=== PATIENT | female | born 1980 | race Caucasian/White ===

== ENCOUNTER 2016-08-19 14:30 | Emergency (ER) | payer MEDICAID ==
[2016-08-19 14:42] VITALS: BP 109/77
--- NOTE | 2016-08-19 14:54 | EDM.PDOC ---
ED HPI Trauma - General Chief Complaint: Lower Extremity Injury/Pain Stated Complaint: LEFT KNEE INJURY Time Seen by Provider: 08/19/16 14:54 Source: Reports: Patient History Limitations: Reports: No limitations - History of Present Illness INITIAL COMMENTS - FREE TEXT/NARRATIVE: Patient presents for evaluation and treatment of injury to the left knee. Patient reports that last night she was helping a friend move when she planted her foot and was pushing something. she slipped on ice causing her left knee to twist. She states that she heard a pop. She reports swelling to the left knee. She has not noticed any bruising. She denies any numbness or tingling distally. she says that it hurts to walk on it but she has been bearing weight. She has been using a heat pack and elevate the leg. She has not taken any pain medications for the knee, reports she no longer has any pain medication. She's attempted to elevated as much as possible. Patient was seen in our ER on 08-11-2016 for the same complaint. She states she reinjured the knee. She did not follow up with ortho after her ER visit. X-ray of the left knee was obtained at that time and showed no acute fractures Occurred When: yesterday Severity: moderate Pain/Injury Location: Reports: lower extremity, left Consciousness: Reports: no loss of consciousness, remembers incident Allergies/ADRs: Allergies No Known Allergies Allergy (Verified 08/19/16 14:38) Home Medications: Ambulatory Orders Vilazodone Hydrochloride [Viibryd] 1 tab PO DAILY 08/11/16 [Confirmed 08/19/16] cloNIDine HCl [Catapres] 1 tab PO DAILY 08/11/16 [Confirmed 08/19/16] Acetaminophen/HYDROcodone [[place]art 325-5 MG] 1 tab PO Q6H #12 tablet 08/19/16 Past Medical History Respiratory History: Reports: Asthma Genitourinary History: Reports: Renal calculus Psychiatric History: Reports: Addiction, Anxiety, Depression, PTSD - Past Surgical History Female Surgical History: Reports: Lithotripsy/ESWL Social & Family History - Tobacco Use Smoking Status *Q: Current Every Day Smoker Years of Tobacco use: 18 Packs/Tins Daily: 1 - Caffeine Use Caffeine Use: Reports: Energy drinks - Recreational Drug Use Recreational Drug Use: No Drug Use in Last 12 Months: No Recreational Drug Type: Reports: Marijuana/Hashish, Methamphetamine Recreational Drug Use Frequency: Not Used In Over 3 Months Review of Systems - Review of Systems Review Of Systems: See Below Musculoskeletal: Reports: joint swelling (left knee), other (left knee pain) Skin: Denies: bruising, wound Neurological: Reports: difficulty walking (due to pain). Denies: numbness, syncope, tingling Trauma Exam - Physical Exam Exam: See Below Exam Limited By: No limitations General Appearance: Reports: alert, WD/WN, no apparent distress Eyes: bilateral eye: PERRL Respiratory Exam: Reports: no respiratory distress Cardiovascular: Reports: normal peripheral pulses, regular rate, rhythm Extremities: Reports: joint effusion (left lateral superior knee), pain with movement (pain with flexion; able to flex to about 90 degrees), tenderness ( left lateral knee), other (negative anterior drawer, negative posterior drawer, negative bridgette's test, minimal pain with valgus and varus stress testing, positive apley grind test) Neurologic: Reports: normal mood/affect Skin: Reports: Normal color, Warm/dry. Denies: Ecchymosis - Caitlin Coma Score Best Eye Response (Caitlin): (4) open spontaneously Best Verbal Response ([place]): (5) oriented Best Motor Response (Caitlin): (6) obeys commands Course - Vital Signs Last Recorded V/S: Last Vital Signs Temp 36.7 C 08/19/16 14:39 Pulse 75 08/19/16 16:31 Resp 16 08/19/16 16:31 BP 109/77 08/19/16 14:39 Pulse Ox 99 08/19/16 16:31 - Orders/Labs/Meds Orders: Active Orders 24 hr Category Date Time Status Knee Min 4V Lt [CR] Stat Exams 08/19/16 15:04 Taken - Radiology Interpretation Free Text/Narrative:: Xray of the left knee shows no acute fractures or dislocations. No change from left knee xray. - Re-Assessments/Exams Free Text/Narrative Re-Assessment/Exam: 08/19/16 15:52 Reviewed xrays with the patient. Possibly has a meniscal tear. Will get crutches and a knee immobilizer. Follow-up with ortho. Discharge instructions as documented. Departure - Departure Time of Disposition: 15:56 Disposition: Home, Self-Care 01 Condition: fair Clinical Impression: Fall Qualifiers: Encounter type: initial encounter Qualified Code(s): W19.XXXA - Unspecified fall, initial encounter Contusion of left knee Qualifiers: Encounter type: initial encounter Qualified Code(s): S80.02XA - Contusion of left knee, initial encounter Prescriptions: Acetaminophen/HYDROcodone [[place]art 325-5 MG] 1 tab PO Q6H #12 tablet Instructions: Fall Prevention in the Home, [id number], Contusion, Easy-to- Read Referrals: PCP,None [Primary Care Provider] - Brent Johnson MD [Physician] - Forms: ED Department Discharge Additional Instructions: Use crutches and knee immobilizer. OTC ibuprofen as needed for pain. [place]art 1 tab every 6 hours prn sever pain. Do not drive or operate machinery within 12 hours of taking the norco. Take as few of the norco as needed to control your pain as norco can be habit forming. Ice the knee 3 or 4 times a day for 10-15 minutes. Elevated the leg as much as possible. Follow-up with ortho in [address] Johnson. Call [phone] to schedule with him. Please return to the ER should your symptoms change or worsen. - My Orders Last 24 Hours: My Active Orders 08/19/16 15:04 Knee Min 4V Lt [CR] Stat - Assessment/Plan Last 24 Hours: My Active Orders 08/19/16 15:04 Knee Min 4V Lt [CR] Stat
--- NOTE | 2016-08-21 09:32 | CR ---
Left knee: Four views of the left knee were obtained. Comparison: Previous knee study of 08/11/16. Fracture again noted within the proximal fibular shaft. Callus appears to be present. Findings are stable from previous exam. Medial and lateral joint spaces are maintained in height. Joint effusion is seen with no change from previous study. No acute fracture or other abnormality is seen. Impression: 1. Fracture containing callus within the proximal fibular shaft which appears stable. 2. Stable joint effusion. 3. Nothing acute is definitely appreciated. Diagnostic code #2
== END 2016-08-19 16:20 | disposition home or self-care (01) ==
LOC: JD.ED 14:30
DX: S80.02XA Contusion of left knee, initial encounter (principal); F17.210 Nicotine dependence, cigarettes, uncomplicated; W00.0XXA Fall on same level due to ice and snow, initial encounter; Z79.899 Other long term (current) drug therapy; Z87.442 Personal history of urinary calculi
CPT/HCPCS: 73564-26-LT; 73564-LT; 99283; 99284

== ENCOUNTER 2016-10-07 11:18 | Emergency (ER) | payer MEDICAID ==
[2016-10-07 11:46] VITALS: BP 117/77
--- NOTE | 2016-10-07 12:05 | EDM.PDOC ---
ED HPI ENT - General Chief Complaint: ENT Problem Stated Complaint: TOOTH PAIN Time Seen by Provider: 10/07/16 11:42 Source of Information: Reports: Patient History Limitations: Reports: No limitations - History of Present Illness INITIAL COMMENTS - FREE TEXT/NARRATIVE: Patient is a 35-year-old female presents ED complaining of tooth pain. Patient states she has a history of methamphetamine use has been clean for the past year and 2 months. She's recently seen by a dentist and [facility] Approximately 2 weeks ago and had a feeling placed to the affected tooth. Mother states a filling fell out approximately 3 days ago she's developed increasing throbbing sensation discomfort to the affected tooth that is aggravated by cold air, food, and drinking. She's been utilizing ibuprofen intermittently 600 mg once a day and Tylenol 5oo mg once a day with some relief. Pain ranges from a 5-8 dependent on situation. There is no swelling, nausea/vomiting, fever or chills. Patient's next followup appointment with dentist is one week from this coming . Patient offers no additional complaints. Timing/Duration: Reports: Constant, Waxing/waning Severity: moderate Location: Reports: mouth Quality: Reports: Throbbing Improves with: Reports: Medication Worsens with: Reports: Other (See history of present illness.) Associated Symptoms: Reports: no other symptoms Treatments RFID DEVELOPER: Reports: Acetaminophen, NSAIDS - Related Data Allergies/ADRs: Allergies Allergy/AdvReac Type Severity Reaction Status Date / Time No Known Allergies Allergy Verified 08/19/16 14:38 Home Meds: Home Meds Vilazodone Hydrochloride [Viibryd] 1 tab PO DAILY 08/11/16 [History] cloNIDine HCl [Catapres] 1 tab PO DAILY 08/11/16 [History] Acetaminophen/HYDROcodone [[place] 325-5 MG] 1 tab PO Q6H #12 tablet 08/19/16 [Rx] Past Medical History Respiratory History: Reports: Asthma Genitourinary History: Reports: Renal calculus Psychiatric History: Reports: Addiction, Anxiety, Depression, PTSD - Past Surgical History Female Surgical History: Reports: Lithotripsy/ESWL Social & Family History - Tobacco Use Smoking Status *Q: Current Every Day Smoker Years of Tobacco use: 18 Packs/Tins Daily: 1 - Caffeine Use Caffeine Use: Reports: Energy drinks - Recreational Drug Use Recreational Drug Use: No Drug Use in Last 12 Months: No Recreational Drug Type: Reports: Marijuana/Hashish, Methamphetamine Recreational Drug Use Frequency: Not Used In Over 3 Months ED ROS ENT - Review of Systems Review Of Systems: See Below Constitutional: Reports: no symptoms HEENT: Reports: Other (Tooth pain) Musculoskeletal: Denies: neck pain ED EXAM, ENT - Physical Exam Exam: See Below Exam Limited By: No limitations General Appearance: alert, WD/WN, no apparent distress Ears: hearing grossly normal Nose: normal inspection Mouth/Throat: Normal inspection, Normal gums, Normal oropharynx, Dental pain (# 20). No: Dental abcess, Dental tenderness, Dental trauma, Dry mucous membrane Head: atraumatic, normocephalic Neck: normal inspection, supple, non-tender. No: lymphadenopathy (L), lymphadenopathy (R) Respiratory/Chest: no respiratory distress, lungs clear, normal breath sounds Cardiovascular: normal peripheral pulses, regular rate, rhythm Neurological: alert, oriented, CN II-XII intact, normal cognition Psychiatric: normal affect, normal mood Skin: Warm, Dry, Intact, Normal color Course - Vital Signs Last Recorded V/S: Last Vital Signs Temp 96.9 F 10/07/16 11:45 Pulse 83 10/07/16 11:45 Resp 20 10/07/16 11:45 BP 117/77 10/07/16 11:45 Pulse Ox 100 10/07/16 11:45 - Re-Assessments/Exams Free Text/Narrative Re-Assessment/Exam: Patient has some tenderness to the #20 tooth where prior filling was placed that recently filed. No signs of infection present. Definitive treatment is seen her dentist RADHA. Will discharge patient home with instructions as documented. Departure - Departure Time of Disposition: 12:05 Disposition: Home, Self-Care 01 Condition: good Clinical Impression: Pain due to dental caries Instructions: Dental Caries Referrals: PCP,None [Primary Care Provider] - Lachelle Weaver PA [Physician Engraver Block] - Forms: ED Department Discharge Additional Instructions: Please contact your dentist today to see if he can get in earlier to be evaluated and treated. Treatment is ibuprofen 600 mg every 6 hours and 650 mg of Tylenol every 6 hours in alternating fashion. Refrain from any hearing factors. Can utilize temporary filling that maybe available at local pharmacy. See your PCP for any other dental concerns if unable to get in with your dentist sooner.
== END 2016-10-07 12:20 | disposition home or self-care (01) ==
LOC: JD.ED 11:18
DX: K02.9 Dental caries, unspecified (principal); J45.909 Unspecified asthma, uncomplicated; F41.9 Anxiety disorder, unspecified; F32.9 Major depressive disorder, single episode, unspecified; F17.210 Nicotine dependence, cigarettes, uncomplicated; Z79.899 Other long term (current) drug therapy
CPT/HCPCS: 99283

== ENCOUNTER 2019-04-02 21:36 | Emergency (ER) | payer SELFPAY ==
[2019-04-02 22:05] VITALS: BP 108/82; PULSE 61
[2019-04-02] MEDS ORDERED: HYDROmorphone 1 MG/ML Syringe IVPUSH STA (22:09)
[2019-04-02] MEDS ORDERED: Sodium Chloride 0.9% 1,000 ML IV SCH (22:15)
[2019-04-02] MEDS ORDERED: Ondansetron 4 MG/2 ML SDV IVPUSH ONE (22:19)
--- NOTE | 2019-04-02 22:28 | EDM.PDOC ---
ED HPI GENERAL MEDICAL PROBLEM - General Chief Complaint: Flank Pain Stated Complaint: poss kidney stone Time Seen by Provider: 04/02/19 22:09 Source of Information: Reports: Patient, RN Notes Reviewed History Limitations: Reports: No Limitations - History of Present Illness INITIAL COMMENTS - FREE TEXT/NARRATIVE: Patient is a 38-year-old female who presents to the ED for evaluation of a possible kidney stone. The patient states that she developed sharp pain to her right flank area around 6:30 tonight, this radiates to the right side of her abdomen. Patient notes she has a history of kidney stones, with the affected side being on the right, she states that she has had to have lithotripsy done in the past. She states that the pain is very similar to kidney stone she has had in the past. She states she is having nausea, but no vomiting or known diarrhea, she does not complain of any fevers or chills at this time. She would rate her pain at a 6 out of 10. She did not take anything for pain medication at home. She further denies any sort of dysuria, urinary frequency or urgency. Right Flank Pain Score (Numeric/FACES): 6 - Related Data Allergies Allergy/AdvReac Type Severity Reaction Status Date / Time No Known Allergies Allergy Verified 04/02/19 22:06 Home Meds: Home Meds ALPRAZolam [Alprazolam] 1 mg PO TID PRN 04/02/19 [History] Escitalopram [Lexapro] 20 mg PO DAILY 04/02/19 [History] traZODone HCl [Trazodone HCl] 50 mg PO BEDTIME 04/02/19 [History] Past Medical History Respiratory History: Reports: Asthma Genitourinary History: Reports: Renal Calculus Musculoskeletal History: Reports: Other (See Below) Other Musculoskeletal History: restless legs Psychiatric History: Reports: Addiction, Anxiety, Depression, PTSD - Past Surgical History HEENT Surgical History: Reports: Other (See Below) Social & Family History - Tobacco Use Smoking Status *Q: Current Every Day Smoker Years of Tobacco use: 21 Packs/Tins Daily: 1 - Caffeine Use Caffeine Use: Reports: Coffee - Recreational Drug Use Recreational Drug Use: No ED ROS GENERAL - Review of Systems Review Of Systems: See Below Constitutional: Denies: Fever, Chills HEENT: Reports: No Symptoms Respiratory: Denies: Shortness of Breath Cardiovascular: Denies: Chest Pain Endocrine: Reports: No Symptoms GI/Abdominal: Reports: Nausea. Denies: Abdominal Pain, Constipation, Diarrhea, Vomiting : Reports: Flank Pain (Right sided). Denies: Dysuria, Frequency, Urgency Musculoskeletal: Reports: No Symptoms Skin: Reports: No Symptoms Neurological: Reports: No Symptoms Psychiatric: Reports: No Symptoms Hematologic/Lymphatic: Reports: No Symptoms ED EXAM, RENAL/ - Physical Exam Exam: See Below Exam Limited By: No Limitations General Appearance: Alert, WD/WN, No Apparent Distress Respiratory/Chest: No Respiratory Distress, Lungs Clear, Normal Breath Sounds, No Accessory Muscle Use, Chest Non-Tender Cardiovascular: Normal Peripheral Pulses, Regular Rate, Rhythm, No Murmur GI/Abdominal: Normal Bowel Sounds, Soft, Non-Tender, No Distention, No Mass Back Exam: Normal Inspection. No: CVA Tenderness (L), CVA Tenderness (R) Extremities: Normal Inspection, Normal Capillary Refill Neurological: Alert, Oriented, Normal Cognition, No Motor/Sensory Deficits Psychiatric: Normal Affect, Normal Mood Skin Exam: Warm, Dry, Intact, Normal Color, No Rash Course - Vital Signs Last Recorded V/S: Last Vital Signs Temp 97.2 F 04/02/19 22:01 Pulse 61 04/02/19 22:01 Resp 20 04/02/19 22:01 BP 108/82 04/02/19 22:01 Pulse Ox 100 04/02/19 22:01 - Orders/Labs/Meds Orders: Active Orders 24 hr Category Date Time Status Influenza Vaccine Charge [RC] .DISCHARGE Care 04/02/19 23:12 Active Strain Urine [RC] ASDIRECTED Care 04/02/19 22:10 Active Labs: Laboratory Tests 04/02/19 Range/Units 22:11 Urine Color Yellow (Yellow) Urine Appearance Clear (Clear) Urine pH 6.0 (5.0-8.0) Ur Specific [place] 1.025 (1.005-1.030) Urine Protein Negative (Negative) Urine Glucose (UA) Negative (Negative) Urine Ketones Negative (Negative) Urine Occult Blood Trace-intact H (Negative) Urine Nitrite Negative (Negative) Urine Bilirubin Negative (Negative) Urine Urobilinogen 0.2 (0.2-1.0) Ur Leukocyte Esterase Negative (Negative) Urine RBC 0-5 (0-5) /hpf Urine WBC 0-5 (0-5) /hpf Ur Squamous Epith Cells 0-5 (0-5) /hpf Urine Bacteria Few (FEW) /hpf Urine Mucus Rare (FEW) /hpf Meds: Medications Discontinued Medications Generic Name Dose Route Start Last Admin Trade Name Pablo PRN Reason Stop Dose Admin Hydromorphone HCl 1 mg 04/02/19 22:09 04/02/19 22:50 Dilaudid IVPUSH 04/02/19 22:10 1 mg ONETIME STA Administration Sodium Chloride 1,000 mls @ 150 mls/hr 04/02/19 22:15 04/02/19 22:49 Normal Saline IV 150 mls/hr ASDIRECTED MARILU Administration Influenza Virus Vaccine 60 mcg 04/02/19 23:15 04/02/19 23:38 Fluzone Quad Syringe IM 04/02/19 23:16 60 mcg .ONCE ONE Administration Influenza Virus Vaccine 60 mcg 04/03/19 10:00 Fluzone Quad Syringe IM 04/03/19 10:01 .ONCE ONE Ondansetron HCl 4 mg 04/02/19 22:19 04/02/19 22:49 Zofran IVPUSH 04/02/19 22:20 4 mg ONETIME ONE Administration - Re-Assessments/Exams Free Text/Narrative Re-Assessment/Exam: 04/02/19 22:27 Patient presents to the ED for evaluation of a possible kidney stone, I did order an IV be placed with some IV fluids, 4 mg Zofran, 1 mg Dilaudid, and abdomen and pelvis CT without contrast, and a UA for further evaluation. 04/02/19 23:34 CT is done and read per V-rad: scarring within right kidney, right renal cysts, small non-obstructing R renal calculi. No hydronephrosis. No ureteral or bladder calculi appreciated. No other acute processes were identified to explain the patients symptoms. Pt will be made aware that she does have some stones in the kidney, but none that are traveling in the ureter at this time. She will be discharged home with general recommendations. Departure - Departure Time of Disposition: 23:37 Disposition: Home, Self-Care 01 Condition: Fair Clinical Impression: Kidney calculi - Discharge Information *PRESCRIPTION DRUG MONITORING PROGRAM REVIEWED*: No *COPY OF PRESCRIPTION DRUG MONITORING REPORT IN PATIENT DONNELL: No Instructions: Kidney Stones, [id number], Dietary Guidelines to Help Prevent Kidney Stones Referrals: PCP,Not In Area [Primary Care Provider] - Forms: ED Department Discharge Additional Instructions: You have been evaluated in the ED for your right sided flank pain. Your urinalysis demonstrated a trace amount of blood, your CT demonstrated that you have stones within the right kidney, but none within the ureters. You were given some IV pain medications, nausea medications and IV Fluids. Recommend you increase your oral fluid intake. You have been given an educational handout regarding diet and kidney stones. You may take 600mg Ibuprofen Q6H PRN for further pain relief. Do not exceed 3200mg Ibuprofen in a 24H time span. If your symptoms do not resolve in a few days time, recommend that you follow up with your primary care physician for a re-evaluation. Please return to the ED if your symptoms change or worsen. - My Orders Last 24 Hours: My Active Orders 04/02/19 22:10 Strain Urine [RC] ASDIRECTED 04/02/19 23:12 Influenza Vaccine Charge [RC] .DISCHARGE - Assessment/Plan Last 24 Hours: My Active Orders 04/02/19 22:10 Strain Urine [RC] ASDIRECTED 04/02/19 23:12 Influenza Vaccine Charge [RC] .DISCHARGE
[2019-04-02] MEDS ORDERED: FLU Vacc QS2019-20(6MOS+)/PF 60 MCG/0.5 ML SYRINGE IM ONE (23:15)
--- NOTE | 2019-04-03 06:43 | CT ---
CT abdomen and pelvis Technique: Multiple axial sections were obtained from above the dome of the diaphragm inferiorly through the pubic symphysis. Intravenous contrast and oral contrast was not utilized. Comparison: Previous CT abdomen and pelvis study of 09/24/15. Findings: Cortical scarring is noted within the upper right kidney. Small cyst is noted within the lower right kidney measuring about 9 mm. Small nonobstructing stone is noted within the mid right kidney. Several other vague calcifications are seen which are believed to be parenchymal in location within the right kidney. Left kidney shows no abnormal calcifications. No ureteral dilatation or ureteral stone is seen. No bladder calculi are seen. Pancreas is within normal limits. Liver contains no focal parenchymal abnormality. Spleen appears within normal limits. Adrenal glands show no nodule. Gallbladder is collapsed without calcified gallstones. Aorta shows no aneurysm. No retroperitoneal adenopathy is seen. Small fat-containing umbilical hernia is noted. No pelvic mass or adenopathy is seen. Cyst is noted within the left ovary measuring 2.2 cm which is believed to be physiologic. Appendix is seen which is normal in size. Bone window settings were reviewed which appear within normal limits for the patient's age. Impression: 1. Scarring within the upper right kidney. Small cyst within the lower right kidney. Small nonobstructing calculus within the right kidney. 2. No ureteral dilatation or ureteral stone is seen. 3. Nothing acute is appreciated on noncontrast CT study of the abdomen and pelvis. Diagnostic code #2 I agree with preliminary report from [facility], finalized on 04/03/19, 12:26 AM Central Time
[2019-04-03] MEDS ORDERED: FLU Vacc QS2019-20(6MOS+)/PF 60 MCG/0.5 ML SYRINGE IM ONE (10:00)
== END 2019-04-02 23:55 | disposition home or self-care (01) ==
LOC: JD.ED 21:36
DX: N20.0 Calculus of kidney (principal); J45.909 Unspecified asthma, uncomplicated; F41.9 Anxiety disorder, unspecified; F32.9 Major depressive disorder, single episode, unspecified; F17.210 Nicotine dependence, cigarettes, uncomplicated; Z23 Encounter for immunization
CPT/HCPCS: 74176; 81001; 90471; 90686; 96361; 96374; 96375; 99284; J1170; J2405; J7040; G0008

== ENCOUNTER 2020-02-02 11:50 | Emergency (ER) | payer MEDICAID ==
[2020-02-02 12:07] VITALS: BP 138/84; PULSE 70
--- NOTE | 2020-02-02 12:17 | EDM.PDOC ---
ED HPI GENERAL MEDICAL PROBLEM - General Chief Complaint: Cardiovascular Problem Stated Complaint: POSS BLOOD CLOTS Time Seen by Provider: 02/02/20 12:16 - History of Present Illness INITIAL COMMENTS - FREE TEXT/NARRATIVE: 39-year-old female presents the emergency room with possible blood clots. The patient is developed some right-sided chest pain and some shortness of breath. The patient had a venous ultrasound done on Wednesday in [place]. This shows some clot, or deep venous thrombosis in the left mid and distal portion of the superficial femoral vein. The patient recently was treated for DVT and PE however is now off her Eliquis. The patient is a current smoker but is trying to quit she was supposed to stay on her Eliquis but insurance denied it according to the patient. 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) Other Treatments LIQUOR ESTABLISHMENT MANAGER: had been off eliquis for a month due to insurance Right Chest Pain Score (Numeric/FACES): 6 Left Upper Leg Pain Score (Numeric/FACES): 4 - Related Data Allergies Allergy/AdvReac Type Severity Reaction Status Date / Time No Known Allergies Allergy Verified 04/02/19 22:06 Home Meds: Home Meds Escitalopram [Lexapro] 20 mg PO DAILY 04/02/19 [History] Apixaban [Eliquis] 5 mg PO BID 02/02/20 [History] Prazosin HCl [Prazosin] 1 mg PO BEDTIME 02/02/20 [History] hydrOXYzine HCL [hydrOXYzine] 25 mg PO ASDIRECTED 02/02/20 [History] oxyCODONE 5 mg PO ASDIRECTED 02/02/20 [History] Past Medical History Respiratory History: Reports: Asthma Genitourinary History: Reports: Renal Calculus Musculoskeletal History: Reports: Other (See Below) Other Musculoskeletal History: restless legs Psychiatric History: Reports: Addiction, Anxiety, Depression, PTSD - Past Surgical History HEENT Surgical History: Reports: Other (See Below) Social & Family History - Caffeine Use Caffeine Use: Reports: Coffee ED ROS GENERAL - Review of Systems Review Of Systems: See Below Constitutional: Reports: No Symptoms HEENT: Reports: No Symptoms Respiratory: Reports: Shortness of Breath. Denies: Cough, Sputum, Hemoptysis Cardiovascular: Reports: Chest Pain (Right sided) Endocrine: Reports: No Symptoms GI/Abdominal: Reports: No Symptoms : Reports: No Symptoms Musculoskeletal: Reports: Other (Left leg pain) Skin: Reports: No Symptoms Neurological: Reports: No Symptoms ED EXAM, GENERAL - Physical Exam Exam: See Below Exam Limited By: No Limitations General Appearance: Alert, No Apparent Distress Head: Atraumatic, Normocephalic Neck: Normal Inspection, Supple, Non-Tender, Full Range of Motion. No: Lymphadenopathy (L), Lymphadenopathy (R) Respiratory/Chest: No Respiratory Distress, Lungs Clear, Normal Breath Sounds Cardiovascular: Normal Peripheral Pulses, Regular Rate, Rhythm, No Edema GI/Abdominal: Normal Bowel Sounds, Soft, Non-Tender (Female) Exam: Normal Speculum Exam Back Exam: Normal Inspection. No: CVA Tenderness (L), CVA Tenderness (R) Extremities: Normal Inspection, Other (Leg has its painful areas but is not grossly swollen or erythematous) Neurological: Alert, Oriented, Normal Cognition Course - Vital Signs Last Recorded V/S: Last Vital Signs Temp 36.3 C 02/02/20 12:05 Pulse 70 02/02/20 12:05 Resp 20 02/02/20 12:05 BP 138/84 02/02/20 12:05 Pulse Ox 97 02/02/20 12:05 - Orders/Labs/Meds Orders: Active Orders 24 hr Category Date Time Status EKG Documentation Completion [RC] STAT Care 02/02/20 12:25 Active Sodium Chloride 0.9% [Normal Saline] 100 ml Med 02/02/20 15:15 Active IV ASDIRECTED Sodium Chloride 0.9% [Saline Flush] Med 02/02/20 15:02 Active 10 ml FLUSH ONETIME PRN Medication Orders Sodium Chloride (Normal Saline) 100 mls @ 60 mls/hr IV ASDIRECTED MARILU Last Admin: 02/02/20 15:50 Dose: 60 mls/hr Documented by: DANA Sodium Chloride (Saline Flush) 10 ml FLUSH ONETIME PRN PRN Reason: Keep Vein Open Last Admin: 02/02/20 15:50 Dose: 10 ml Documented by: Admin: 02/02/20 15:19 Dose: 10 ml Documented by: KATYA Labs: Laboratory Tests 02/02/20 02/02/20 02/02/20 Range/Units 08:10 12:41 12:41 WBC 6.37 (3.98-10.04) K/mm3 RBC 4.40 (3.98-5.22) M/mm3 Hgb 14.2 (11.2-15.7) gm/dl Hct 42.8 (34.1-44.9) % MCV 97.3 H D (79.4-94.8) fl MCH 32.3 H (25.6-32.2) pg MCHC 33.2 (32.2-35.5) g/dl RDW Std Deviation 44.7 (36.4-46.3) fL Plt Count 183 (182-369) K/mm3 MPV 10.9 (9.4-12.3) fl Neut % (Auto) 67.9 (34.0-71.1) % Lymph % (Auto) 21.5 (19.3-51.7) % [place] % (Auto) 7.8 (4.7-12.5) % Eos % (Auto) 1.7 (0.7-5.8) Baso % (Auto) 0.6 (0.1-1.2) % Neut # (Auto) 4.32 (1.56-6.13) K/mm3 Lymph # (Auto) 1.37 (1.18-3.74) K/mm3 [place] # (Auto) 0.50 H (0.24-0.36) K/mm3 Eos # (Auto) 0.11 (0.04-0.36) K/mm3 Baso # (Auto) 0.04 (0.01-0.08) K/mm3 PT 10.1 (9.7-12.0) SECONDS INR 0.94 APTT 24 (22-31) SECONDS Sodium 141 (136-145) mEq/L Potassium 3.4 L (3.5-5.1) mEq/L Chloride 107 (98-107) mEq/L Carbon Dioxide 25 (21-32) mEq/L Anion Gap 12.4 (5-15) BUN 11 (7-18) mg/dL Creatinine 0.9 (0.55-1.02) mg/dL Est Cr Clr Drug Dosing 62.70 mL/min Estimated GFR (MDRD) > 60 (>60) mL/min BUN/Creatinine Ratio 12.2 L (14-18) Glucose 107 H (74-106) mg/dL Calcium 8.8 (8.5-10.1) mg/dL Total Bilirubin 0.2 (0.2-1.0) mg/dL AST 16 (15-37) U/L ALT 33 (14-59) U/L Alkaline Phosphatase 55 (46-116) U/L Total Protein 6.4 (6.4-8.2) g/dl Albumin 3.3 L (3.4-5.0) g/dl Globulin 3.1 gm/dL Albumin/Globulin Ratio 1.1 (1-2) Meds: Medications Generic Name Dose Route Start Last Admin Trade Name Freq PRN Reason Stop Dose Admin Sodium Chloride 100 mls @ 60 mls/hr 02/02/20 15:15 02/02/20 15:50 Normal Saline IV 60 mls/hr ASDIRECTED MARILU Administration Sodium Chloride 10 ml 02/02/20 15:02 02/02/20 15:50 Saline Flush FLUSH 10 ml ONETIME PRN Administration Keep Vein Open Discontinued Medications Generic Name Dose Route Start Last Admin Trade Name Freq PRN Reason Stop Dose Admin Iopamidol 100 ml 02/02/20 15:02 02/02/20 15:50 [id number] (76%) IVPUSH 02/02/20 15:03 100 ml ONETIME ONE Administration - Re-Assessments/Exams Free Text/Narrative Re-Assessment/Exam: 02/02/20 14:55 Reviewed we will proceed with a CTA. Patient denies any possibility of . 02/02/20 17:05 CTA of the chest does not show pulmonary embolism she has a suspected blood clot in her leg. She was able to hand picker her Eliquis from the post office today it is recommended that she start this 5 mg twice daily and follow-up with her regular healthcare provider early this next week. Departure - Departure Time of Disposition: 17:05 Disposition: Home, Self-Care 01 Clinical Impression: Chest pain, DVT (deep venous thrombosis) Clinical Impression: (Ruled Out): Lower leg DVT (deep venous thrombosis) Referrals: Ishmael Morton PA [Primary Care Provider] - Forms: ED Department Discharge Additional Instructions: Return to the emergency room with any questions problems or worsening symptoms. Start your Eliquis 5 mg twice daily. Follow-up with your regular healthcare provider early this next week for recheck Sepsis Event Note (ED) - Evaluation Sepsis Screening Result: No Definite Risk - Focused Exam Vital Signs: Vital Signs Temp Pulse Resp BP Pulse Ox 02/02/20 12:05 36.3 C 70 20 138/84 97 - My Orders Last 24 Hours: My Active Orders 02/02/20 12:25 EKG Documentation Completion [RC] STAT 02/02/20 15:02 Sodium Chloride 0.9% [Saline Flush] 10 ml FLUSH ONETIME PRN 02/02/20 15:15 Sodium Chloride 0.9% [Normal Saline] 100 ml IV ASDIRECTED - Assessment/Plan Last 24 Hours: My Active Orders 02/02/20 12:25 EKG Documentation Completion [RC] STAT 02/02/20 15:02 Sodium Chloride 0.9% [Saline Flush] 10 ml FLUSH ONETIME PRN 02/02/20 15:15 Sodium Chloride 0.9% [Normal Saline] 100 ml IV ASDIRECTED
[2020-02-02] MEDS ORDERED: Iopamidol 755 Mg/ML 100 ML Bottle IVPUSH ONE (15:02)
[2020-02-02] MEDS ORDERED: Sodium Chloride 0.9% 100 ML IV SCH (15:15)
[2020-02-02] MEDS: Sodium Chloride 0.9% 10 ML Syringe FLUSH PRN ×2 (15:19→15:50)
--- NOTE | 2020-02-02 16:06 | CT ---
CT chest Technique: Multiple axial sections through the chest were obtained. Intravenous contrast was utilized. Study has been performed as a pulmonary angiogram protocol. Findings: Pulmonary arteries are fairly well-opacified. No filling defects are seen to indicate pulmonary embolism. No pericardial thickening is seen. Visualized upper abdominal structures shows no discrete acute finding. Lungs are clear with no acute parenchymal change. No pleural effusions are seen. Bone window settings were reviewed. No acute osseous finding is seen. Impression: 1. No findings of pulmonary embolism. 2. Nothing acute is appreciated on CT study of the chest. Diagnostic code #1 Study was dictated in MDT
[2020-02-02] MEDS ORDERED: Potassium Chloride 20 MEQ Tab.ER PO ONE (17:07)
== END 2020-02-02 17:32 | disposition home or self-care (01) ==
LOC: JD.ED 11:50
DX: R07.9 Chest pain, unspecified (principal); I82.402 Acute embolism and thrombosis of unspecified deep veins of left lower extremity; J45.909 Unspecified asthma, uncomplicated; F41.9 Anxiety disorder, unspecified; F32.9 Major depressive disorder, single episode, unspecified; F17.200 Nicotine dependence, unspecified, uncomplicated; Z79.01 Long term (current) use of anticoagulants; Z79.899 Other long term (current) drug therapy; Z86.711 Personal history of pulmonary embolism; Z20.828 Contact with and (suspected) exposure to other viral communicable diseases
CPT/HCPCS: 36415; 71275; 80053; 85025; 85610; 85730; 87635; 93005; 99285; A9270; J7050; Q9967; 99284; U0002

== ENCOUNTER 2020-11-09 15:21 | Emergency (ER) | payer MEDICAID ==
[2020-11-09] MEDS ORDERED: Sodium Chloride 0.9% 10 ML SDV IV ONE (15:41)
[2020-11-09] MEDS ORDERED: Sodium Chloride 0.9% 1,000 ML IV ONE (15:41)
[2020-11-09] MEDS ORDERED: HYDROmorphone 1 MG/ML Syringe IVPUSH ONE (15:44)
[2020-11-09] MEDS ORDERED: Ondansetron 4 MG/2 ML SDV IVPUSH ONE (15:45)
[2020-11-09] MEDS: Sodium Chloride 0.9% 10 ML Syringe FLUSH PRN ×2 (15:52→16:28)
--- NOTE | 2020-11-09 15:52 | EDM.PDOC ---
ED HPI GENERAL MEDICAL PROBLEM - General Chief Complaint: Lower Extremity Injury/Pain Stated Complaint: L LEG PAIN Time Seen by Provider: 11/09/20 15:22 Source of Information: Reports: Patient, Old Records History Limitations: Reports: No Limitations - History of Present Illness INITIAL COMMENTS - FREE TEXT/NARRATIVE: Patient presents with increasing left lower extremity pain along with right upper shoulder and chest pain, sweats, nausea. Patient had a history of left knee meniscus surgery and postoperatively had a DVT she had been on Eliquis and after being on Eliquis for about 6 months she was seen and evaluated by her primary and thought that should be fine to stop the Eliquis. Patient does smoke a large amount of cigarettes every day. Last week she noted that she started having onset of left leg swelling again and she went to the urgent care they did a left lower extremity ultrasound that verified clot in the left lower extremity and she started back on Eliquis currently still on the 10 mg dose twice a day. She is concerned that there is just some increasing pain left lower extremity swelling some left lower abdominal pain associated with her right upper shoulder/chest pain. No lightheadedness or fainting spell no chest pain no pain with breathing no coughing. No sore throat runny nose nausea but no vomiting no diarrhea no burning pain or blood in the urine denies menstrual cycles have been normal. Patient's parents in a car accident otherwise no family history known. Left Lower Leg Pain Score (Numeric/FACES): 6 - Related Data Allergies Allergy/AdvReac Type Severity Reaction Status Date / Time No Known Allergies Allergy Verified 11/09/20 15:34 Home Meds: Home Meds Escitalopram [Lexapro] 20 mg PO DAILY 04/02/19 [History] Apixaban [Eliquis] 10 mg PO BID 02/02/20 [History] Prazosin HCl [Prazosin] 1 mg PO BEDTIME 02/02/20 [History] hydrOXYzine HCL [hydrOXYzine] 25 mg PO ASDIRECTED 02/02/20 [History] Acetaminophen/HYDROcodone [[place] 325-5 MG] 1 - 2 tab PO Q4H PRN #20 tablet 11/09/20 [Rx] Past Medical History Cardiovascular History: Reports: Blood Clots/VTE/DVT Respiratory History: Reports: Asthma Genitourinary History: Reports: Renal Calculus Musculoskeletal History: Reports: Other (See Below) Other Musculoskeletal History: restless legs Psychiatric History: Reports: Addiction, Anxiety, Depression, PTSD - Past Surgical History HEENT Surgical History: Reports: Other (See Below) Other HEENT Surgeries/Procedures: ENT Female Surgical History: Reports: Lithotripsy/ESWL Musculoskeletal Surgical History: Reports: Other (See Below) Other Musculoskeletal Surgeries/Procedures:: had knee scope done Social & Family History - Tobacco Use Tobacco Use Status *Q: Current Every Day Tobacco User Years of Tobacco use: 20 Packs/Tins Daily: 1 - Caffeine Use Caffeine Use: Reports: Coffee - Recreational Drug Use Recreational Drug Use: No Review of Systems - Review of Systems Review Of Systems: See Below Constitutional: Reports: Diaphoresis Eyes: Denies: Vision Change Ears: Denies: Dizziness Respiratory: Denies: Shortness of Breath, Wheezing, Pleuritic Chest Pain, Cough Cardiovascular: Reports: Chest Pain. Denies: Irregular Heart Rate, Lightheadedness GI/Abdominal: Reports: Abdominal Pain, Nausea. Denies: Diarrhea, Vomiting Genitourinary: Denies: Dysuria, Hematuria, Painful Urination Skin: Denies: Rash Neurological: Denies: Dizziness, Numbness, Syncope, Tingling Psychiatric: Reports: No Symptoms ED EXAM, GENERAL - Physical Exam Exam: See Below Exam Limited By: No Limitations General Appearance: Alert, WD/WN, Mild Distress Throat/Mouth: Other (Mucous membranes are dry) Head: Atraumatic Neck: Normal Inspection Respiratory/Chest: No Respiratory Distress, Lungs Clear, Normal Breath Sounds. No: Rales, Rhonchi Cardiovascular: Normal Peripheral Pulses, Regular Rate, Rhythm Peripheral Pulses: 1+: Dorsalis Pedis (L), Dorsalis Pedis (R), 2+: Radial (R) GI/Abdominal: Normal Bowel Sounds, Soft, Non-Tender Extremities: Normal Inspection, Other (Pain in left lower extremity in the calf mostly now today but also some in the proximal thigh and left lower pelvic/lower quadrant of the abdomen. Cap refill less than 2 seconds, dorsalis pedis and posterior tibial pulses are palpated.) Psychiatric: Normal Affect Skin Exam: Warm Course - Vital Signs Text/Narrative:: Patient with history of DVT in the past, currently on Eliquis however with symptoms concerning that she may have developed a recurrent pulmonary embolism but also want a look for increasing clot burden especially in the lower abdomen iliacs and therefore CT scan of chest abdomen pelvis angiogram performed. Patient otherwise appears dehydrated would give her some IV fluids, does not seem to be Covid or other acute pneumonia or respiratory illness no coughing no fall trauma or injury does not seem to be a strain or sprain. Last Recorded V/S: Last Vital Signs Temp 97.1 F 11/09/20 15:32 Pulse 80 11/09/20 15:32 Resp 16 11/09/20 15:32 BP 138/89 11/09/20 15:32 Pulse Ox 98 11/09/20 15:32 - Orders/Labs/Meds Orders: Active Orders 24 hr Category Date Time Status Peripheral IV Care [RC] . DIRECTED Care 11/09/20 15:40 Active Abdomen Pelvis w Cont [CT] Stat Exams 11/09/20 15:43 Taken Chest PE [Ang Chest] [CT] Stat Exams 11/09/20 15:42 Taken Sodium Chloride 0.9% [Saline Flush] Med 11/09/20 15:40 Active 10 ml FLUSH ASDIRECTED PRN Peripheral IV Insertion Adult [OM.PC] Stat Oth 11/09/20 15:40 Ordered Medication Orders Sodium Chloride (Sodium Chloride 0.9% 10 Ml Syringe) 10 ml FLUSH ASDIRECTED PRN PRN Reason: Keep Vein Open Last Admin: 11/09/20 16:28 Dose: 10 ml Documented by: Admin: 11/09/20 15:52 Dose: 10 ml Documented by: NATALIE Labs: Laboratory Tests 11/09/20 11/09/20 Range/Units 15:54 15:54 WBC 7.31 (3.98-10.04) K/mm3 RBC 4.52 (3.98-5.22) M/mm3 Hgb 14.9 (11.2-15.7) gm/dl Hct 44.0 (34.1-44.9) % MCV 97.3 H (79.4-94.8) fl MCH 33.0 H (25.6-32.2) pg MCHC 33.9 (32.2-35.5) g/dl RDW Std Deviation 42.7 (36.4-46.3) fL Plt Count 238 (182-369) K/mm3 MPV 9.9 (9.4-12.3) fl Neut % (Auto) 70.7 (34.0-71.1) % Lymph % (Auto) 19.8 (19.3-51.7) % [place] % (Auto) 7.7 (4.7-12.5) % Eos % (Auto) 1.1 (0.7-5.8) Baso % (Auto) 0.4 (0.1-1.2) % Neut # (Auto) 5.17 (1.56-6.13) K/mm3 Lymph # (Auto) 1.45 (1.18-3.74) K/mm3 [place] # (Auto) 0.56 H (0.24-0.36) K/mm3 Eos # (Auto) 0.08 (0.04-0.36) K/mm3 Baso # (Auto) 0.03 (0.01-0.08) K/mm3 Sodium 144 (136-145) mEq/L Potassium 3.7 (3.5-5.1) mEq/L Chloride 107 (98-107) mEq/L Carbon Dioxide 22 (21-32) mEq/L Anion Gap 18.7 H (5-15) BUN 14 (7-18) mg/dL Creatinine 0.9 (0.55-1.02) mg/dL Est Cr Clr Drug Dosing 92.87 mL/min Estimated GFR (MDRD) > 60 (>60) mL/min BUN/Creatinine Ratio 15.6 (14-18) Glucose 96 (70-99) mg/dL Calcium 8.8 (8.5-10.1) mg/dL Total Bilirubin 0.4 (0.2-1.0) mg/dL AST 24 (15-37) U/L ALT 39 (14-59) U/L Alkaline Phosphatase 56 (46-116) U/L C-Reactive Protein 0.6 (<1.0) mg/dL Total Protein 7.0 (6.4-8.2) g/dl Albumin 3.7 (3.4-5.0) g/dl Globulin 3.3 gm/dL Albumin/Globulin Ratio 1.1 (1-2) Meds: Medications Generic Name Dose Route Start Last Admin Trade Name Freq PRN Reason Stop Dose Admin Sodium Chloride 10 ml 11/09/20 15:40 11/09/20 16:28 Sodium Chloride 0.9% 10 Ml Syringe FLUSH 10 ml ASDIRECTED PRN Administration Keep Vein Open Discontinued Medications Generic Name Dose Route Start Last Admin Trade Name Chaceq PRN Reason Stop Dose Admin Hydromorphone HCl 1 mg 11/09/20 15:44 11/09/20 15:56 Hydromorphone 1 Mg/Ml Syringe IVPUSH 11/09/20 15:45 1 mg ONETIME ONE Administration Sodium Chloride 1,000 mls @ 999 mls/hr 11/09/20 15:41 11/09/20 15:53 Normal Saline IV 11/09/20 16:41 999 mls/hr ONETIME ONE Administration Iopamidol 100 ml 11/09/20 16:07 11/09/20 16:28 Iopamidol 755 Mg/Ml 100 Ml Bottle IVPUSH 11/09/20 16:08 100 ml ONETIME ONE Administration Iopamidol 25 ml 11/09/20 16:08 11/09/20 16:28 Iopamidol 755 Mg/Ml 50 Ml Bottle IVPUSH 11/09/20 16:09 25 ml ONETIME ONE Administration Ondansetron HCl 4 mg 11/09/20 15:45 11/09/20 15:56 Ondansetron 4 Mg/2 Ml Sdv IVPUSH 11/09/20 15:46 4 mg ONETIME ONE Administration Sodium Chloride 10 ml 11/09/20 15:41 11/09/20 15:52 Sodium Chloride 0.9% 10 Ml Sdv IV 11/09/20 15:42 10 ml ASDIRECTED ONE Administration - Radiology Interpretation Free Text/Narrative:: CT chest angiogram is reviewed by V rad and does not show any evidence of pulmonary embolism. Minor subpleural atelectatic changes no pleural effusion no pneumothorax no cardiomegaly normal heart, no aortic aneurysm lymph nodes within normal limits pulmonary arteries are normal - Re-Assessments/Exams Free Text/Narrative Re-Assessment/Exam: 11/09/20 15:52 Treated with IV fluid resuscitation for dehydration, CT scan of the chest abdomen pelvis angiograms, baseline labs, given Dilaudid for pain Zofran for nausea. 11/09/20 16:26 Reviewed the labs and CBC is within normal limits, creatinine is normal, electrolytes are normal, no elevation of her liver function tests await CT scan results. Departure - Departure Time of Disposition: 17:30 Disposition: Home, Self-Care 01 Condition: Fair Clinical Impression: DVT, lower extremity, distal, acute Qualifiers: Laterality: left Qualified Code(s): I82.4Z2 - Acute embolism and thrombosis of unspecified deep veins of left distal lower extremity DVT (deep venous thrombosis) Qualifiers: DVT location: lower extremity Affected thrombotic vein of extremity: unspecified lower extremity proximal vein Chronicity: unspecified Laterality: left Qualified Code(s): I82.4Y2 - Acute embolism and thrombosis of unspecified deep veins of left proximal lower extremity - Discharge Information *PRESCRIPTION DRUG MONITORING PROGRAM REVIEWED*: Yes *COPY OF PRESCRIPTION DRUG MONITORING REPORT IN PATIENT DONNELL: No Prescriptions: Acetaminophen/HYDROcodone [[place] 325-5 MG] 1 - 2 tab PO Q4H PRN #20 tablet PRN Reason: Pain Instructions: Deep Vein Thrombosis, Venous Thromboembolism Prevention Referrals: Carol Brown NP [Primary Care Provider] - Forms: ED Department Discharge, ED Return to Work/School Form Additional Instructions: Continue to take care Eliquis as directed recommend elevate rest and avoid excessive standing or walking. May try warm moist heat to the lower extremity. May use hydrocodone 1 or 2 every 4-6 hours as needed for severe pain. Off work tomorrow. Follow-up with your primary care physician next week, return sooner if any increasing pain, shortness of breath, lightheadedness, dizziness, weakness or worsening. Sepsis Event Note (ED) - Evaluation Sepsis Screening Result: No Definite Risk - Focused Exam Vital Signs: Vital Signs Temp Pulse Resp BP Pulse Ox 11/09/20 15:32 97.1 F 80 16 138/89 98 - My Orders Last 24 Hours: My Active Orders 11/09/20 15:40 Peripheral IV Care [RC] . DIRECTED Sodium Chloride 0.9% [Saline Flush] 10 ml FLUSH ASDIRECTED PRN Peripheral IV Insertion Adult [OM.PC] Stat 11/09/20 15:42 Chest PE [Ang Chest] [CT] Stat 11/09/20 15:43 Abdomen Pelvis w Cont [CT] Stat - Assessment/Plan Last 24 Hours: My Active Orders 11/09/20 15:40 Peripheral IV Care [RC] . DIRECTED Sodium Chloride 0.9% [Saline Flush] 10 ml FLUSH ASDIRECTED PRN Peripheral IV Insertion Adult [OM.PC] Stat 11/09/20 15:42 Chest PE [Ang Chest] [CT] Stat 11/09/20 15:43 Abdomen Pelvis w Cont [CT] Stat
[2020-11-09] MEDS ORDERED: Iopamidol 755 Mg/ML 100 ML Bottle IVPUSH ONE (16:07)
[2020-11-09] MEDS ORDERED: Iopamidol 755 MG/ML 50 ML Bottle IVPUSH ONE (16:08)
[2020-11-09 17:54] VITALS: BP 128/85; PULSE 75
--- NOTE | 2020-11-09 19:32 | CT ---
CT chest Technique: Multiple axial sections through the chest were obtained. Intravenous contrast was utilized. Study has been performed as a pulmonary angiogram protocol. Comparison: Prior CT chest study of 02/02/20. Findings: Thoracic aorta shows no aneurysm. Pulmonary arteries are well opacified. No filling defects are seen to indicate pulmonary embolism. Mediastinum shows no adenopathy. Heart size appears within normal limits. Lungs are clear with no acute parenchymal change. No pleural effusions are seen. Bone window settings were reviewed which show mild scattered disc space narrowing and endplate spurring within the spine. No acute osseous abnormality is appreciated. Impression: 1. Mild degenerative change within the thoracic spine. 2. No findings of pulmonary embolism. 3. Nothing acute is appreciated on CT study of the chest. Diagnostic code #2 I agree with preliminary report from [facility] finalized on 11/09/20, 6:04 PM CDT, code 1
--- NOTE | 2020-11-09 19:33 | CT ---
CT abdomen and pelvis Technique: Multiple axial sections were obtained from above the dome of the diaphragm inferiorly to slightly below the level of the iliac crests. Reconstructed coronal and axial images were also obtained. Comparison: Prior CT abdomen and pelvis study of 04/02/19. Findings: Abdominal aorta shows no aneurysm. Celiac axis and superior mesenteric artery show no focal stenosis. Single renal artery on each side is seen, these show no focal stenosis. Inferior vena cava is patent. Visualized common iliac arteries as well as proximal visualized internal and external iliac arteries are patent. Other findings: Liver contains no focal parenchymal abnormality. Spleen size is normal. Adrenal glands show no nodule. Pancreas appears within normal limits. Gallbladder contains no calcified gallstones. Areas of scarring are seen within the right kidney. Minimal small cysts are felt to be present within both kidneys. Slightly larger cyst is also noted within the right kidney measuring 1.3 cm. No ureteral dilatation is seen within the visualized ureters. No ureteral calcifications are seen within the visualized ureters. Two nonobstructing calculi are seen within the right kidney. No retroperitoneal adenopathy or mesenteric abnormalities are noted. Minimal fat-containing umbilical hernia is seen. No discrete bowel abnormality is noted. Appendix is seen which is normal. Bone window settings were reviewed which appear within normal limits for the patient's age. Impression: 1. Small cysts within the kidneys. Slight scarring within the right kidney. Two nonobstructing calculi seen within the right kidney. 2. Proximal arteries within the aorta and branch vessels appear within normal limits. 3. Nothing acute is seen on CT study of the abdomen and to the mid pelvis. Diagnostic code #2 I agree with preliminary report from [facility] finalized on 11/09/20, 6:19 PM CDT, code 1
== END 2020-11-09 17:45 | disposition home or self-care (01) ==
LOC: JD.ED 15:21
DX: I82.492 Acute embolism and thrombosis of other specified deep vein of left lower extremity (principal); I82.4Z2 Acute embolism and thrombosis of unspecified deep veins of left distal lower extremity; I82.4Y2 Acute embolism and thrombosis of unspecified deep veins of left proximal lower extremity; Z72.0 Tobacco use; Z79.01 Long term (current) use of anticoagulants
CPT/HCPCS: 36415; 71275; 74177; 80053; 85025; 86140; 96374; 96375; 99285; J1170; J2405; J7030; Q9967; 99284